=== PATIENT | female | born 1955 | race Caucasian/White ===

== ENCOUNTER → 2016-05-07 | Outpatient (CLI) | payer BC ==
[2016-05-07 14:19] LABS: CHLORIDE,CL 106 mmol/L (98-110); SODIUM,NA 139 mmol/L (136-146)
== END ==
LOC: MW.CHFP 13:30
PROVIDERS: ATTEND Nurse Practitioner Family
DX: E78.00 Pure hypercholesterolemia, unspecified (principal)
CPT/HCPCS: 36415; 80053; 80061

== ENCOUNTER → 2016-06-14 | Outpatient (CLI) | payer BC | END | disposition home or self-care (01) | LOC: MW.CHPOD 16:07 | PROVIDERS: ATTEND Podiatrist Foot & Ankle Surgery | DX: S92.353A Displaced fracture of fifth metatarsal bone, unspecified foot, initial encounter for closed fracture (principal); Z53.9 Procedure and treatment not carried out, unspecified reason ==

== ENCOUNTER → 2016-06-18 | Outpatient (CLI) | payer BC ==
--- NOTE | 2016-06-19 13:57 | CR ---
EXAM DATE: 06/18/16 PATIENT'S AGE: 60 Patient: BRAAYN JOSEPH Facility: [place], [place] Site . Site : [id number] Study: XRay Extremity Left [id number]/10/2017 3:16:55 PM Ordering Physician: Av Gonzalez Final Report: Indication: Indication:5th metatarsal fracture Technique: Left foot 2 views Comparison: Comparison:April 23, 2016. Findings/Impression: Nondisplaced fracture in the 5th metatarsal is less distinct with new callus formation consistent with interval but incomplete healing. No new abnormality and no other significant changes. Dictated by Joe Rosa MD @ Jun 19 2016 10:27AM (Electronic Signature) Report Signed by Proxy and Original Signed Document filed in the Medical Record. [facility]
== END ==
LOC: MW.DI 14:45
PROVIDERS: ATTEND Podiatrist Foot & Ankle Surgery
DX: S92.352D Displaced fracture of fifth metatarsal bone, left foot, subsequent encounter for fracture with routine healing (principal); X58.XXXD Exposure to other specified factors, subsequent encounter
CPT/HCPCS: 73620-26-LT; 73620-LT

== ENCOUNTER → 2016-07-18 | Outpatient (CLI) | payer BC ==
--- NOTE | 2016-07-18 16:55 | CR ---
EXAMINATION: Left foot HISTORY: Fracture COMPARISON: 06/18/2016 TECHNIQUE: 3 views FINDINGS/IMPRESSION: There is a healing nondisplaced distal fifth metatarsal fracture identified, un changed in position and alignment. There is a moderate to large plantar calcaneal spur. The remainin g osseous structures appear intact.
== END ==
LOC: MW.CHPOD 10:35
PROVIDERS: ATTEND Podiatrist Foot & Ankle Surgery
DX: S92.353D Displaced fracture of fifth metatarsal bone, unspecified foot, subsequent encounter for fracture with routine healing (principal); S92.355D Nondisplaced fracture of fifth metatarsal bone, left foot, subsequent encounter for fracture with routine healing; M77.32 Calcaneal spur, left foot
CPT/HCPCS: 73630-26-LT; 73630-LT

== ENCOUNTER 2022-08-16 15:25 | Emergency (ER) | payer MEDICARE, OTHER ==
[2022-08-16] MEDS ORDERED: Lidocaine/Epineph/Tetracaine 3 ML Syringe TOP ONE (17:54)
[2022-08-16] MEDS ORDERED: Diphtheria,Pertussis(Acell),Tetanus Vaccine 0.5 ML Syringe IM ONE (17:55)
[2022-08-16] MEDS ORDERED: Acetaminophen 325 MG Tab PO ONE (18:53)
== END 2022-08-16 19:25 | disposition home or self-care (01) ==
LOC: MW.ED 15:25
DX: S62.616A Displaced fracture of proximal phalanx of right little finger, initial encounter for closed fracture (principal); S01.01XA Laceration without foreign body of scalp, initial encounter; Z23 Encounter for immunization; W01.0XXA Fall on same level from slipping, tripping and stumbling without subsequent striking against object, initial encounter
CPT/HCPCS: 12002; 26725; 70450; 73140; 90471; 90715; 99284; A9270